=== PATIENT | female | born 1985 | race Caucasian/White ===

== ENCOUNTER 2016-11-03 21:45 | Inpatient (IN) | payer OTHER ==
[~2016-11-03] VITALS: Ht 160 cm; Wt 115.4 kg
[~2016-11-03 21:45] MED LIST: FERR27TA; PREN1TAB49
[2016-11-03 22:08] VITALS: BP 125/76; PULSE 90; RESP 18
[2016-11-03] MEDS ORDERED: METHYLERGONOVINE 0.2 MG INJ IM PRN (22:30)
[2016-11-03] MEDS ORDERED: OXYTOCIN 30 UNITS/LR 500 ML IV PRN (22:30)
[2016-11-03] MEDS ORDERED: OXYTOCIN 30 UNITS/LR 500 ML IV SCH ×2 (22:30)
[2016-11-03] MEDS ORDERED: LIDOCAINE 1% (MPF) 30 ML INJ INJ PRN (22:30)
[2016-11-03] MEDS ORDERED: CARBOPROST 250 MCG INJ IM PRN (22:30)
[2016-11-03] MEDS ORDERED: MISOPROSTOL 200 MCG TAB PR PRN (22:30)
[2016-11-03] MEDS ORDERED: BUTORPHANOL 2 MG INJ IV PRN (22:30)
[2016-11-03] MEDS ORDERED: IBUPROFEN 600 MG TAB PO PRN (22:30)
[2016-11-03] MEDS: LACTATED RINGER'S 1,000 ML IV SCH (22:42)
[2016-11-03 22:48] LABS: BASOPHILS % 0.4 % (0.0-2.0); EOSINOPHILS # 0.1 10^3/ul (0.0-0.5); EOSINOPHILS % 0.6 % (0.0-7.0); HEMATOCRIT 34.1 % (37.0-47.0); HEMOGLOBIN 11.5 g/dl (12.0-16.0); LYMPHOCYTES # 2.7 10^3/ul (0.8-2.9); LYMPHOCYTES % 21.9 % (15.0-51.0); MEAN CORPUSCULAR HEMOGLOBIN 28.8 pg (29.0-33.0); MEAN CORPUSCULAR HGB CONC 33.7 g/dl (32.0-37.0); MEAN CORPUSCULAR VOLUME 85.4 fl (82.0-101.0); MEAN PLATELET VOLUME 10.3 fl (7.4-10.4); MONOCYTE # 0.9 10^3/ul (0.3-0.9); MONOCYTES % 7.4 % (0.0-11.0); NEUTROPHIL # 8.5 10^3/ul (1.6-7.5); NEUTROPHILS % 69.7 % (39.0-77.0); PLATELET COUNT 254 10^3/UL (140-440); RED BLOOD COUNT 3.99 10^6/ul (4.20-5.40); RED CELL DISTRIBUTION WIDTH 14.7 % (11.5-14.5); UNCORRECTED WBC 12.2 10^3/ul (4.8-10.8); WHITE BLOOD COUNT 12.2 10^3/ul (4.8-10.8)
[2016-11-03 22:49] LABS: CONDITION 1; LH ANALYZER COMMENTS 1
[2016-11-03] MEDS ORDERED: LACTATED RINGER'S 1,000 ML IV PRN (23:00)
[2016-11-03 23:13] LABS: INR 0.91; PROTIME 12.2 Sec (12.2-14.2)
--- NOTE | 2016-11-03 23:33 | HP ---
Date/Time of Note Date/Time of Note DATE: 11/03/16 TIME: 23:30 OB - History Hx of Present Chief Complaint: contractions Estimated Due Date: Nov 05, 2016 : 3 Para: 2 Spontaneous : 0 Therapeutic : 0 Care: Good Care Obstetrical Complications: None Medical Complications: None Past Family/Social History * Past Medical, Surgical, Family and Obstetric Histories reviewed from chart. GBS Status: Negative OB Admission Exam Vital Signs Vital Signs Vital Signs Date Time Temp Pulse Resp B/P Pulse Ox O2 Delivery O2 Flow Rate FiO2 11/03/16 22:08 98.4 90 18 125/76 Room Air Physical Exam HEENT: WNL Heart: Rhythm Normal Lungs: Clear Abdomen: WNL Reflexes: Normal Cervical Dilatation: 4cm Effacement: 75% Station: -2 Membranes: Intact Heart Rate: 140's Accelerations: Accelerations Present Varibility: Moderate Last 72 hours Lab Results CBC & BMP 11/03/16 22:26 OB Assessment/Plan Reason for admission: active labor Plan: Expectant Management YAHAIRA MCMILLAN MD Nov 03, 2016 23:33
[2016-11-04] MEDS ORDERED: FENTAnyl 2MCG/ML-ROPIV 0.2% 100 ML ONE (01:37)
[2016-11-04] MEDS: LACTATED RINGER'S 1,000 ML IV SCH (01:58)
[2016-11-04] MEDS ORDERED: FENTAnyl 2MCG/ML-ROPIV 0.2% 100 ML BAG EPI SCH (02:00)
[2016-11-04] MEDS ORDERED: NALOXONE (0.4 MG/ML) INJ IV PRN (02:00)
--- NOTE | 2016-11-04 05:16 | LDN ---
Date/Time of Note Date/Time of Note DATE: 11/04/16 TIME: 05:13 Delivery Summary over intact perineum Placenta Delivered: Spontaneously Meconium: Light Perineum intact?: No (Please specify) Perineal laceration: 1 Perineal laceration repair: Second degree perineal repaired with 3-0 Vicryl. Anesthesia type: Epidural Estimated blood loss: 300 Sponge & Needle done & correct: Yes All needle counts correct: Yes Any foreign bodies felt in the: No Problems: Delivery Information Sex Sex: male Apgars 1 Minute: 9 5 Minute: 9 Suctioning Nose & mouth suctioned at latrice: Yes Delee suction performed: No Umbilical Cord Umbilical cord with: 3 Vessels Cord presentations: nuchal cord Nuchal cord present X: 1 Cord Blood was obtained: Yes Mother & Baby Disposition Disposition Mom & Baby to Maternity; Good: Yes YAHAIRA MCMILLAN MD Nov 04, 2016 05:16
--- NOTE | 2016-11-04 05:40 | DELSUM ---
Delivery Summary A-C Datetime Report Generated by CPN: 11/04/2016 05:40 DELIVERY PERSONNEL Sharples Machine Operator: Anderson, Crystal MATERNAL INFORMATION Delivery Anesthesia: Epidural Medications in Delivery: LR with Pitocin 30 units Estimated Blood Loss (ml): 300 Placenta Cultured: No Maternal Complications: None LABOR SUMMARY EDC: 11/05/2016 00:00 No. Babies in Womb: 1 Attempted: No Labor Anesthesia: Epidural LABOR INFORMATION Reason for Induction: Not Applicable Onset of Labor: 11/03/2016 20:00 Complete Dilatation: 11/04/2016 04:35 Oxytocin: N/A Group B Beta Strep: Negative Group B Beta Strep: Negative Antibiotics # of Doses: 0 Steroids Given: None Reason Steroids Not Administered: Not Applicable MEMBRANES Membranes Rupture Method: Spontaneous Rupture of Membranes: 11/04/2016 03:26 Length of Rupture (hr): 1.35 Amniotic Fluid Color: Heavy Meconium Amniotic Fluid Amount: Small Amniotic Fluid Odor: Normal STAGES OF LABOR Stage 1 hr: 8 Stage 1 min: 35 Stage 2 hr: 0 Stage 2 min: 12 Stage 3 hr: 0 Stage 3 min: 4 Total Time in Labor hr: 8 Total Time in Labor min: 51 VAGINAL DELIVERY Episiotomy: None Laceration Extension: Second Degree Laceration Type: Perineal Laceration Repair: Yes Initial Vag Sponge Count: 20 Final Vag Sponge Count: 20 Initial Vag Sharps Count: 1 Final Vag Sharps Count: 2 Sponge Count Correct: Yes Sharps Count Correct: Yes BABY A INFORMATION Infant Delivery Date/Time: 11/04/2016 04:47 Method of Delivery: Vaginal Born in Route : No : N/A Forceps: N/A Vacuum Extraction: N/A Shoulder Dystocia : No SHOULDER DYSTOCIA BABY A Delivery Date/Time: 11/04/2016 04:47 PRESENTATION/POSITION BABY A Presentation: Cephalic Cephalic Presentation: Vertex Breech Presentation: N/A PLACENTA INFORMATION BABY A Placenta Delivery Time : 11/04/2016 04:51 Placenta Method of Delivery: Spontaneous Placenta Status: Delivered SCORES BABY A Heart Rate 1 min: >100 bpm Resp Effort 1 min: Good Cry Reflex Irritability 1 min: Cough/Sneeze/Pulls Away Muscle Tone 1 min: Active Motion Color 1 min: Body [place], Extremit Blue Resuscitation Effort 1 min: Tactile Stimulation SCORE 1 MIN: 9 Heart Rate 5 min: >100 bpm Resp Effort 5 min: Good Cry Reflex Irritability 5 min: Cough/Sneeze/Pulls Away Muscle Tone 5 min: Active Motion Color 5 min: Body [place], Extremit Blue Resuscitation Effort 5 min: Tactile Stimulation SCORE 5 MIN: 9 INFORMATION BABY A Gestational Age at Delivery: 39.6 Gestational Status: Full Term- 39- 40.6 Weeks Outcome : Liveborn Infant Condition : Stable Sex: Male IDENTIFICATION/MEDS BABY A ID Band Number: [id number] ID Band Location: Right Leg; Left Arm Sensor Number: [id number] Sensor Location : Cord Clamp Vitamin K Given : Not Given Erythromycin Given: Not Given WEIGHT/LENGTH BABY A Infant Birthweight (gm): 3335 Weight (lb): 7 Infant Weight (oz): 6 Length (in): 19.00 Length (cm): 48.26 CORD INFORMATION BABY A No. Cord Vessels: 3 Nuchal Cord : Around Neck x1, Loose Cord Blood Taken: Yes Infant Suction: Mouth; Nose ASSESSMENT BABY A Complications: Meconium Physical Findings at Delivery: Within Normal Limits Infant Respirations: Appears Normal Fur Tailor/ALS Called : No Care By: Zain Mir Dim Transferred To: Remains with Mother
[2016-11-04 06:45] VITALS: BP 112/59; PULSE 72; RESP 18
[2016-11-04] MEDS ORDERED: CARBOPROST 250 MCG INJ IM PRN (07:30)
[2016-11-04] MEDS ORDERED: MISOPROSTOL 200 MCG TAB PR PRN (07:30)
[2016-11-04] MEDS ORDERED: ACETAMINOPHEN/CODEINE #3 TAB PO PRN (07:30)
[2016-11-04] MEDS ORDERED: WITCH HAZEL/GLYCERIN PAD PR PRN (07:30)
[2016-11-04] MEDS ORDERED: DIBUCAINE 1% 30 GM OINT PR PRN (07:30)
[2016-11-04] MEDS ORDERED: OXYTOCIN 30 UNITS/LR 500 ML IV PRN (07:30)
[2016-11-04] MEDS ORDERED: BENZOCAINE 20% 56 ML SPRAY TOP PRN (07:30)
[2016-11-04] MEDS ORDERED: METHYLERGONOVINE 0.2 MG INJ IM PRN (07:30)
[2016-11-04] MEDS ORDERED: ACETAMINOPHEN 325 MG TAB PO PRN (07:30)
[2016-11-04 08:30] VITALS: BP 102/52; PULSE 85; RESP 19
[2016-11-04] MEDS: LACTATED RINGER'S 1,000 ML IV* SCH ×3 (10:05→23:02)
[2016-11-04] MEDS: SENNA/DOCUSATE NA (8.6MG/50MG) TAB PO SCH ×2 (10:07→21:53)
[2016-11-04 12:00] VITALS: BP 104/65; PULSE 76; RESP 18
[2016-11-04] MEDS ORDERED: INFLUENZA VIRUS VACCINE 0.5 ML SYG IM* ONE (12:00)
[2016-11-04] MEDS: IBUPROFEN 600 MG TAB PO SCH ×3 (12:24→23:52)
[2016-11-04 16:54] VITALS: BP 101/57; PULSE 83; RESP 17
[2016-11-04 19:45] VITALS: BP 101/65; PULSE 80; RESP 19
[2016-11-05 00:15] VITALS: BP 110/71; PULSE 89; RESP 18
[2016-11-05 04:05] VITALS: BP 108/58; PULSE 67; RESP 19
[2016-11-05] MEDS: IBUPROFEN 600 MG TAB PO SCH ×3 (05:34→18:08)
[2016-11-05] MEDS: LACTATED RINGER'S 1,000 ML IV* SCH ×3 (06:18→23:02)
[2016-11-05 07:32] LABS: BASOPHIL # 0.1 10^3/ul (0.0-0.1); BASOPHILS % 0.4 % (0.0-2.0); EOSINOPHILS # 0.1 10^3/ul (0.0-0.5); EOSINOPHILS % 0.8 % (0.0-7.0); HEMATOCRIT 30.5 % (37.0-47.0); HEMOGLOBIN 10.6 g/dl (12.0-16.0); LYMPHOCYTES # 3.6 10^3/ul (0.8-2.9); MEAN CORPUSCULAR HEMOGLOBIN 29.9 pg (29.0-33.0); MEAN CORPUSCULAR HGB CONC 34.6 g/dl (32.0-37.0); MEAN CORPUSCULAR VOLUME 86.5 fl (82.0-101.0); MEAN PLATELET VOLUME 10.8 fl (7.4-10.4); MONOCYTES % 7.6 % (0.0-11.0); NEUTROPHIL # 8.6 10^3/ul (1.6-7.5); NEUTROPHILS % 64.2 % (39.0-77.0); PLATELET COUNT 236 10^3/UL (140-440); RED BLOOD COUNT 3.52 10^6/ul (4.20-5.40); RED CELL DISTRIBUTION WIDTH 15.1 % (11.5-14.5); UNCORRECTED WBC 13.5 10^3/ul (4.8-10.8); WHITE BLOOD COUNT 13.5 10^3/ul (4.8-10.8)
[2016-11-05 07:46] LABS: CONDITION 1; LH ANALYZER COMMENTS 1
[2016-11-05 07:55] VITALS: BP 103/66; PULSE 72; RESP 16
[2016-11-05] MEDS: SENNA/DOCUSATE NA (8.6MG/50MG) TAB PO SCH ×2 (09:51→21:00)
--- NOTE | 2016-11-05 13:34 | PN ---
Date/Time of Note Date/Time of Note DATE: 11/05/16 TIME: 13:33 OB Subjective Subjective Subjective day 1 Vital sign stable afebrile abdomen soft uterus firm lochia normal extremity Laboratory Tests Test 11/05/16 06:26 Basophils # 0.110^3/ul Basophils % 0.4% Blood Morphology Comment Eosinophils # 0.110^3/ul Eosinophils % 0.8% Hematocrit 30.5% Hemoglobin 10.6g/dl Lymphocytes # 3.610^3/ul Lymphocytes % 27.0% Mean Corpuscular Hemoglobin 29.9pg Mean Corpuscular Hemoglobin Concent 34.6g/dl Mean Corpuscular Volume 86.5fl Mean Platelet Volume 10.8fl Monocytes # 1.010^3/ul Monocytes % 7.6% Neutrophils # 8.610^3/ul Neutrophils % 64.2% Nucleated Red Blood Cells # 0.010^3/ul Nucleated Red Blood Cells % 0.0/100WBC Platelet Count 19164^3/UL Red Blood Count 3.5210^6/ul Red Cell Distribution Width 15.1% White Blood Count 13.510^3/ul Current Medications Medications (Trade) Dose Ordered Sig/Angelique Route PRN Reason Start Time Stop Time Status Last Admin Dose Admin Lactated Ringer's (Lr) 1,000 ml @ 125 mls/hr Q8H IV 11/03/16 22:13 11/04/16 07:04 DC 11/04/16 01:58 Butorphanol Tartrate (Stadol) 2 mg Q2H PRN IV PAIN 11/03/16 22:30 11/04/16 07:04 DC 11/03/16 23:29 Lidocaine 30 ml 30 ml ONCE PRN INJ EPISIOTOMY/TEARING 11/03/16 22:30 11/04/16 07:04 DC Oxytocin/Lactated Ringer's 500 ml @ 125 mls/hr ONCE -MAY REPEAT X1 IV 11/03/16 22:30 11/04/16 07:04 DC 11/04/16 04:58 Oxytocin/Lactated Ringer's 500 ml @ 125 mls/hr ONCE IV 11/03/16 22:30 11/04/16 07:04 DC 11/04/16 05:34 Ibuprofen 600 mg 600 mg ONCE PRN PO Mild Pain (Pain Score 1-3) 11/03/16 22:30 11/04/16 07:04 DC Lactated Ringer's 1,000 ml @ 2,000 mls/hr Q30M PRN IV PRE-EPIDURAL BOLUS 11/03/16 23:00 11/04/16 07:04 DC Oxytocin/Lactated Ringer's 500 ml @ 0 mls/hr ONCE PRN IV For Hemorrhage Management 11/03/16 22:30 11/04/16 07:04 DC Methylergonovine Maleate (Methergine) 0.2 mg ONCE PRN IM VAGINAL BLEEDING 11/03/16 22:30 11/04/16 07:04 DC 11/04/16 05:06 Carboprost Tromethamine (Hemabate) 250 mcg ONCE PRN IM VAGINAL BLEEDING 11/03/16 22:30 11/04/16 07:04 DC Misoprostol 1000 mcg 1,000 mcg ONCE PRN PA VAGINAL BLEEDING 11/03/16 22:30 11/04/16 07:04 DC Fentanyl/ Ropivacaine 100 ml @ ud STK-MED ONCE .ROUTE 11/04/16 01:37 11/04/16 01:38 DC Naloxone HCl (Narcan) 0.2 mg Q2M PRN IV FOR RESP RATE 8 OR LESS 11/04/16 02:00 11/04/16 07:04 DC Fentanyl/ Ropivacaine 100 ml 100 ml EPIDURAL (PCEA) EPI 11/04/16 02:00 11/04/16 07:04 DC Lactated Ringer's (Lr) 1,000 ml @ 125 mls/hr Q8H IV* 11/04/16 07:02 11/04/16 10:05 Ibuprofen (Motrin) 600 mg Q6 PO 11/04/16 12:00 11/05/16 13:21 Acetaminophen (Tylenol Tab) 650 mg Q4H PRN PO PAIN LEVEL 1-5 11/04/16 07:30 Acetaminophen/ Codeine Phosphate (Tylenol No.3) 1 tab Q4H PRN PO PAIN LEVEL 1-5 11/04/16 07:30 11/04/16 21:53 Senna/Docusate Sodium (Senokot-S) 1 tab BID PO 11/04/16 09:00 11/05/16 09:51 Witch Kierra/ Glycerin (Tucks Pads) 1 pad BEDSIDE MEDICATION PRN PA HEMORRHOID/EPISIOTMY PAIN 11/04/16 07:30 11/04/16 10:06 Benzocaine (Dermoplast Wolverine) 1 spray BEDSIDE MEDICATION PRN TOP HEMORRHOID/EPISIOTMY PAIN 11/04/16 07:30 11/04/16 10:07 Dibucaine (Nupercainal) 1 applic BEDSIDE MEDICATION PRN PA HEMORRHOID/EPISIOTMY PAIN 11/04/16 07:30 11/04/16 10:07 Diphtheria/ Tetanus/Acell Pertussis 0.5 ml 0.5 ml ONCE ONCE IM* 11/06/16 09:00 11/06/16 09:01 Oxytocin/Lactated Ringer's 500 ml @ 0 mls/hr ONCE PRN IV For Hemorrhage Management 11/04/16 07:30 Methylergonovine Maleate (Methergine) 0.2 mg ONCE PRN IM VAGINAL BLEEDING 11/04/16 07:30 Carboprost Tromethamine (Hemabate) 250 mcg ONCE PRN IM VAGINAL BLEEDING 11/04/16 07:30 Misoprostol (Cytotec) 1,000 mcg ONCE PRN PA VAGINAL BLEEDING 11/04/16 07:30 Influenza Virus Vaccine (Fluzone) 0.5 ml ONCE ONCE IM* 11/04/16 12:00 11/04/16 12:01 DC 11/05/16 13:22 KAI CHAVEZ MD Nov 05, 2016 13:34
[2016-11-05 16:15] VITALS: BP 95/59; PULSE 68; RESP 14
[2016-11-05 20:00] VITALS: BP 115/71; PULSE 72; RESP 20
[2016-11-06] MEDS: IBUPROFEN 600 MG TAB PO SCH ×3 (00:20→12:15)
[2016-11-06 04:00] VITALS: BP 110/69; PULSE 68; RESP 20
[2016-11-06] MEDS: LACTATED RINGER'S 1,000 ML IV* SCH ×2 (07:02→15:02)
[2016-11-06 08:00] VITALS: BP 108/58; PULSE 87; RESP 18
[2016-11-06] MEDS: SENNA/DOCUSATE NA (8.6MG/50MG) TAB PO SCH (08:57)
[2016-11-06] MEDS ORDERED: DIPHTH/TET/ACEL PERTUSS (ADULT) 0.5 ML VIAL IM* ONE (09:00)
--- NOTE | 2016-11-06 13:17 | PD.PPDC ---
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
--- NOTE | 2016-11-06 13:20 | DS ---
Date/Time of Note Date/Time of Note DATE: 11/06/16 TIME: 13:19 Obstetrical Discharge Record Final Diagnosis Final Diagnosis: Term delivered Vaginal Delivery Obstetrical Delivery: Spontaneous Condition on Discharge Physical Assessment Last Vitals: Vital sign stable abdomen soft uterus firm lochia normal extremity normal recommended to make appointment to be seen at the clinic 2 weeks Voiding: Yes Bowel Movement: Yes Breast: Soft, non-tender Calf Tenderness: No Patient Condition: Good KAI CHAVEZ MD Nov 06, 2016 13:20
[2016-11-06 16:12] VITALS: BP 110/60; PULSE 18; RESP 18
== END 2016-11-06 17:29 | disposition home or self-care (01) | DRG 775 ==
LOC: OBT 21:45 → L-D 21:46 → OBT 22:10 → L-D 22:47 → PP1 11-04 06:42
PROVIDERS: ADMIT Obstetrics & Gynecology; ATTEND Obstetrics & Gynecology
PROC: 10E0XZZ Delivery of Products of Conception, External Approach (ICD-10-PCS; principal; 2016-11-04)
PROC: 0KQM0ZZ Repair Perineum Muscle, Open Approach (ICD-10-PCS; 2016-11-04)
PROC: 3E0234Z Introduction of Serum, Toxoid and Vaccine into Muscle, Percutaneous Approach (ICD-10-PCS; 2016-11-05)
PROC: 3E0234Z Introduction of Serum, Toxoid and Vaccine into Muscle, Percutaneous Approach (ICD-10-PCS; 2016-11-06)
DX: O69.81X0 Labor and delivery complicated by cord around neck, without compression, not applicable or unspecified (principal); Z68.42 Body mass index [BMI] 45.0-49.9, adult; O70.1 Second degree perineal laceration during delivery; O99.214 Obesity complicating childbirth; E66.01 Morbid (severe) obesity due to excess calories; Z3A.39 39 weeks gestation of pregnancy; Z37.0 Single live birth; Z23 Encounter for immunization
CPT/HCPCS: 62319; 85025; 85610; 85730; 86592; 86900; 86901; 87340; 90686; 90715; 99464; G0463; J2210; J2590; J3010; J7120